=== PATIENT | male | born 1970 | race Caucasian/White ===

== ENCOUNTER 2023-10-20 08:33 | Day surgery (SDC) | payer OTHER, SELFPAY ==
[2023-10-20] VITALS (8 sets, daily range): BP systolic 113–164; BP diastolic 77–93; PULSE 69–83; RESP 14–16; TEMP 36.8; O2SAT 94–97; BMI 37.1
[2023-10-20] MEDS: SODIUM CHLORIDE 0.9 % (FLUSH) 10 ML SYRINGE IVF (09:30)
[2023-10-20] MEDS: LACTATED RINGERS 1000 ML 1,000 ML 100 ML IV ×2 (09:30→13:26)
--- NOTE | 2023-10-20 09:35 | W.PM.H&PU ---
History & Physical Update History & Physical Update H&P Reviewed and patient assessed: No changes noted
--- NOTE | 2023-10-20 11:04 | SUR.PREOP ---
TIME?OUT:?1105 PT/Cathy Scott RN/Dr. Danny MDA?VERIFICATION?OF?SURGICAL?SITE right bicep,?PROCEDURE,?AND?CONSENT OBTAINED?PRIOR?TO?INVASIVE?PROCEDURE.
[2023-10-20] MEDS: fentaNYL 100 MCG/2 ML inj IVP (11:07)
[2023-10-20] MEDS: MIDAZOLAM HCL 1 MG/ML inj IVP (11:07)
--- NOTE | 2023-10-20 11:32 | W.PM.NB ---
Nerve Block Nerve Block Time Seen by Provider: 11:11 Date Seen: 10/20/23 Type of block requested by surgeon for post-operative analgesia: axillary Side: right Time out performed: Yes Verification of patient name: Yes Verification of date of : Yes Site marking: site marked Name of person performing procedure: Danny Continuous monitoring Was continuous monitoring of O2 sat, B/P, school lunch monitor, recorded every 15 minutes?: Yes Procedure Checklist: sterile prep, needles and gloves Ultrasound guided. Images saved: Yes Medications given in 5ml increments after negative aspiration: Ropivicaine %: 0.5 mL: 30 Needle gauge: 22 Patient tolerated procedure well: Yes Additional comments: Needle noted adjacent to nerve Block Charges Block Charge (with Pro Fee): Brachial Plexus Use of Ultrasound Machine for Block: Yes- US Guidance/pain block
--- NOTE | 2023-10-20 11:33 | W.ANESCHARGE ---
Anesthesia Charges Start Date/Time Anesthesia Start Date: 10/20/23 Anesthesia Start Time: 12:24 Stop Date/Time Anesthesia Stop Date: 10/20/23 Anesthesia Stop Time: 14:20
[2023-10-20] MEDS: CEFAZOLIN 2 GM INJ IVP (12:31)
--- NOTE | 2023-10-20 12:50 | XR_ITS ---
Patient: LORIN WILKS Facility:?[facility] Patient ID:?[id number] Site Patient ID:?[id number]. Site :?[id number] Study:?XRay-Extremity Right 2V ELBOW-10/20/2023 1:47:16 PM Ordering Physician:?DR. AVILES Final Report: INDICATION: Right bicep tendon repair. TECHNIQUE: Three spot images of the right elbow submitted. 0.19 mGy fluoroscopy dose. FINDINGS: Images from biceps tendon repair. Soft tissue anchor in the proximal radius. Dictated by Alex Ramos MD @ 10/21/2023 8:24:22 AM Signed by:?Alex Ramos MD @10/21/2023 8:24:22 AM (Electronic Signature)
--- NOTE | 2023-10-20 13:47 | P.ORPRC_ITS ---
Procedure Note Date of procedure: 10/20/23 Procedure: PREOPERATIVE DIAGNOSIS: Right distal biceps rupture, acute, partial-thickness POSTOPERATIVE DIAGNOSIS: Right distal biceps rupture acute, near complete PROCEDURE: 1. Right open distal biceps repair 2. 81245 - intraoperative fluoroscopy up to 1 hour. SURGEON: Danilo Delacruz MD MOTOR [employer]HICLE LICENCE EXAMINER: Julian Wylie PA-C (Of note, use of an production assistant was critical for this case to aid in patient positioning, tissue retraction, nerve protection, arm positioning, suture management, and closure as well as splint application.) ANESTHESIA: Supraclavicular block plus MAC TOURNIQUET: 42 minutes at 250 torr IMPLANTS: Arthrex tension slide distal Biceps Button with Peek interference screw 7 x 10 mm COMPLICATIONS: None evident INDICATIONS FOR PROCEDURE: The patient is a pleasant 53-year-old male, right hand dominant. They sustained an injury to the right distal biceps roughly 4 days ago. Upon evaluation, they were found to have a positive hook sign as well as positive MRI showing for cm retraction of the distal stump. Given the patient's use of this extremity, recommendation was made for surgery. DESCRIPTION OF PROCEDURE: Following a thorough discussion of the risks, benefits and alternatives, consent was obtained and the right forearm was marked. The patient was brought to the operating room, placed supine on the operating table. Induction of general anesthesia was undertaken after a supraclavicular block was administered in the preop holding. Appropriate time out was performed to identify proper patient, site and procedure. The operative upper extremity was prepped and draped in the appropriate sterile fashion using ChloraPrep prep. The limb was exsanguinated and the tourniquet inflated to 250 Torr after 2 g IV Ancef was administered within 1 hour of incision preoperatively. A transverse incision was made in line with the antecubital fossa crease approximately 4 cm distal to the crease itself. Sharp incision through the skin and blunt dissection through the subcutaneous tissue allowed protection of crossing neurologic and vascular structures. Blunt dissection was taken deep for identification of the radial tuberosity. Additionally, the lateral antebrachial cutaneous nerve was identified and protected throughout the case. We then turned our attention to retrieving the biceps stump. The stump was retracted approximately 8 cm. While there was a small sliver of biceps tendon remaining, 90+ % of the biceps tendon had torn and retracted. The stump was assessed, and found to have [good integrity. It was whipstitched utilizing a #2 FiberLoop suture to get a strong hold on the tendon. The tendon diameter was measured and found to be a diamter of 8mm. We brought the tendon back down through the typical deeper planes and deep to crossing vascularity to eventually reattach to the bicipital tuberosity. The insertion site was then prepared using a Joker elevator and rongeur. A guide pin was utilized bicortical, and an 8 mm reamer was then used unicortically after confirming on C-arm fluoroscopic imaging to be in appropriate position at the radial tuberosity. The suture tails were then passed through the tension slide button and the button passed through the bicortical tunnel, and flipped. It was confirmed on C-arm fluoroscopic imaging to be in the proper position and flipped completely and apposed against bone. We then utilized this tension slide manner to reapproximate the tendon to the reamed hole. Once the tendon was dunked, with the elbow flexed to roughly 90 degrees, we passed one of the limbs of the suture through the tendon and tied it with a knot pusher with 6 alternating half hitches with post switching to secure it and prevent it from sliding off the tension slide button. We then utilized the interference screw as a secondary mechanism to secure the tendon.. The tourniquet was deflated and hemostasis achieved. A thorough irrigation with normal saline was then performed followed by closure with 2-0 Vicryl and 4-0 Monocryl in subcutaneous and subcuticular layers. Dressings were applied. Posterior splint was applied. Patient awoke from anesthesia and was transferred to the Post-Anesthesia Care Unit in stable condition. PLAN: 1. Ice and elevate operative upper extremity. 2. Finger range of motion as tolerated. 3. Follow up with PA visit in 3-10 days. Wound check. Active range of motion operative elbow and forearm as tolerted. lift nothing more than a coffee cup x 8 weeks. 4. Ibuprofen, Tylenol, and/or oxycodone for pain as needed.
--- NOTE | 2023-10-20 14:23 | W.ANESCHARGE ---
Anesthesia Charges Start Date/Time Anesthesia Start Date: 10/20/23 Anesthesia Start Time: 12:24 Stop Date/Time Anesthesia Stop Date: 10/20/23 Anesthesia Stop Time: 14:20
== END 2023-10-20 15:30 | disposition home or self-care (01) ==
PROVIDERS: PCP Family Medicine; Visit Provider Orthopaedic Surgery Sports Medicine
PROC: (CPT 24341; principal; 2023-10-20 12:15)
DX: S46.211A Strain of muscle, fascia and tendon of other parts of biceps, right arm, initial encounter (principal); G89.18 Other acute postprocedural pain
CPT/HCPCS: 24341; 01716; 64415; 73070; 76942; A4580; C1713; J0690; J2250; J2405; J2704; J2795; J3010; J3490; J7120